=== PATIENT | male | born 1945 | race Caucasian/White ===

== ENCOUNTER 2016-10-21 17:14 | Emergency (ER) | payer OTHER ==
[2016-10-21] MEDS ORDERED: diltiaZEM INJ 5 MG/ML VIAL IVP STA (17:44)
--- NOTE | 2016-10-21 17:45 | ED Physician Documentation ---
PD HPI CHEST PAIN - Stated complaint Stated Complaint: ABNORMAL HR - Chief complaint Chief Complaint: Cardiac - History obtained from History obtained from: Patient - History of Present Illness Timing - onset: Other (70-year-old gentleman visiting from the [facility] , he has a history of recurrent atrial fibrillation and flutter. Last was 2 weeks ago, likely cardioverted at that time. He went back into it at 7 a.m. and has been in it since. He feels fatigued but denies chest pain or trouble breathing. Denies pedal edema.) Review of Systems Ten Systems: 10 systems reviewed and negative Constitutional: reports: Fatigue. denies: Fever, Chills Nose: denies: Rhinorrhea / runny nose, Congestion Throat: denies: Sore throat Cardiac: denies: Chest pain / pressure, Palpitations Respiratory: denies: Dyspnea, Cough PD PAST MEDICAL HISTORY - Past Medical History Past Medical History: Yes Cardiovascular: Atrial fibrillation Other Past Medical History: ablation x 2. pleural effusion - Past Surgical History Past Surgical History: Yes HEENT: Tonsil/Adenoidectomy - Present Medications Home Medications: Ambulatory Orders Medication Instructions Recorded Confirmed Apixaban [Eliquis] 5 mg BID 10/21/16 10/21/16 Cholecalciferol (Vitamin D3) 4,000 unit DAILY 10/21/16 10/21/16 [Vitamin D3] Diltiazem HCl [Diltiazem 24Hr ER] 1 tab BID 10/21/16 10/21/16 Epinephrine [Epipen 2-Lamont] PRN 10/21/16 Eplerenone 25 mg DAILY 10/21/16 10/21/16 Fluticasone [Flonase] 1 spray DAILY 10/21/16 10/21/16 Furosemide 80 mg BID 10/21/16 10/21/16 Losartan [Cozaar] 25 mg DAILY 10/21/16 10/21/16 Magnesium Oxide [Magnesium] 400 mg BID 10/21/16 10/21/16 Melatonin 5 mg QPM 10/21/16 10/21/16 Metolazone 5 mg DAILY PRN 10/21/16 10/21/16 Omeprazole [PriLOSEC] 20 mg BID 10/21/16 10/21/16 Oxymetazoline HCl [Afrin] 1 - 2 spray DAILY PRN 10/21/16 10/21/16 Potassium Chloride 4 tab DAILY 10/21/16 10/21/16 Rosuvastatin Calcium [Crestor] 20 mg QPM 10/21/16 10/21/16 Tadalafil [Cialis] 5 mg DAILY 10/21/16 10/21/16 - Allergies Allergies/Adverse Reactions: Allergies Allergy/AdvReac Type Severity Reaction Status Date / Time bee venom protein (honey bee) Allergy Anaphylaxis Verified 10/21/16 17:29 - Social History Does the pt smoke?: No Smoking Status: Never smoker Does the pt drink ETOH?: Yes Does the pt have substance abuse?: Yes Substance Use and Type: Marijuana PD ED PE NORMAL - Vitals Vital signs reviewed: Yes (tachycardic) - General General: Alert and oriented X 3, No acute distress - HEENT HEENT: PERRL, EOMI - Neck Neck: Supple, no meningeal sign, No bony TTP - Cardiac Cardiac: Other (tachycardic, regular) - Respiratory Respiratory: No respiratory distress, Clear bilaterally - Abdomen Abdomen: Normal bowel sounds, Soft, Non tender - Back Back: No CVA TTP, No spinal TTP - Extremities Extremities: No edema, No calf tenderness / cord - Neuro Neuro: Alert and oriented X 3, Normal speech - Psych Psych: Normal mood, Normal affect Results - Vitals Vitals: Vital Signs - 24 hr 10/21/16 10/21/16 10/21/16 17:20 17:29 17:32 Temperature 36.8 C Heart Rate 148 H Respiratory 18 Rate Blood Pressure 144/81 H Blood Pressure 129/82 H [Right] O2 Saturation 98 10/21/16 10/21/16 10/21/16 17:54 17:58 18:00 Temperature Heart Rate 144 H 117 H 144 H Respiratory 18 28 H 12 Rate Blood Pressure 114/98 H 114/98 H Blood Pressure [Right] O2 Saturation 98 97 10/21/16 10/21/16 10/21/16 18:06 18:10 18:11 Temperature Heart Rate 102 H 115 H 63 Respiratory 16 10 L 8 L Rate Blood Pressure 162/73 H 160/68 H Blood Pressure [Right] O2 Saturation 96 97 88 L 10/21/16 10/21/16 10/21/16 18:13 18:15 18:16 Temperature Heart Rate 68 72 74 Respiratory 12 18 20 Rate Blood Pressure 98/68 98/68 116/69 Blood Pressure [Right] O2 Saturation 97 97 96 10/21/16 18:18 Temperature Heart Rate 76 Respiratory 16 Rate Blood Pressure 133/86 H Blood Pressure [Right] O2 Saturation 96 Oxygen O2 Source Nasal cannula Oxygen Flow Rate 2 - EKG (time done) 1735 Rate: Rate (enter#) (145) Rhythm: Other (Regular, likely aflutter) Ischemia: Non specific changes Computer interpretation: Agree with computer 1826 Rate: Rate (enter#) (75) Rhythm: NSR [place]: Normal Intervals: Normal LA QRS: Normal Ischemia: Non specific changes Computer interpretation: Agree with computer - Labs Labs: Laboratory Tests 10/21/16 10/21/16 17:40 17:40 WBC 11.6 H RBC 5.02 Hgb 15.8 Hct 45.8 MCV 91.1 MCH 31.4 H MCHC 34.5 RDW 12.8 Plt Count 259 MPV 7.3 L Neut # 6.2 Lymph # 3.8 H [place] # 1.1 H Eos # 0.4 Baso # 0.1 Absolute Nucleated RBC 0.00 Nucleated RBCs 0.0 Sodium 134 L Potassium 3.1 L Chloride 93 L Carbon Dioxide 26 Anion Gap 15.0 H BUN 22 H Creatinine 1.1 Estimated GFR (MDRD) 67 L Glucose 129 H Calcium 10.1 Magnesium 2.0 Total Bilirubin 1.0 AST 26 ALT 30 Alkaline Phosphatase 59 Total Protein 8.7 H Albumin 4.8 Globulin 3.9 Albumin/Globulin Ratio 1.2 Lipase 20 L Procedures - Procedural sedation Sedation prep: Informed consent, Time out completed, Last meal (7am), PE performed, AHA 2 - mild disease, IV O2 monitor, ET CO2 monitor, RT present Sedation medications: propofol (100mg IVP) Patient status during sedation: Responds to tactile, Vitals remained stable, Maintained airway. No: Respiratory depression, Hypoxia, Needed resp assistance Sedation recovery: Recovered uneventfully - Cardioversion 1 Time of attempt: 18:11 Indication: Tachyarrhythmia Risks, benefits, alternatives explained to: Pt (signed consent, discussed risk of CVA/anesthesia complication) CS via: AP approach Sync: Biphasic, 100j Performed by: ED MD [facility] - ED course ED course: 70-year-old gentleman with recurrent A. fib presents with A. fib of less than 12 hours duration, and he is anticoagulated and requests electrical cardioversion which has been done before. After informed consent he was administered 100 mg of propofol IV. cardioversion was successful after 100 J on the first try and he recovered without issue. The patient and family were counseled as to the diagnosis and need for followup. I counseled the patient with regard to signs and symptoms that would necessitate an urgent reevaluation in the emergency department. They understand they are welcome to return at any time if worse or if not improving as expected. This document was made in part using voice recognition software. While efforts are made to proofread this document, sound alike and grammatical errors may occur. Departure - Departure Disposition: Home, Self Care Clinical Impression: Atrial fibrillation Qualifiers: Atrial fibrillation type: paroxysmal Qualified Code(s): I48.0 - Paroxysmal atrial fibrillation Condition: Good Record reviewed to determine appropriate education?: Yes Instructions: Atrial Fibrillation Dc Comments: Your potassium was low today (3.1), mention this to your doctor for recheck. You were administered supplementation here. Return if worse. Your blood pressure was elevated today on check in to the emergency department. This does not mean that you have hypertension, it is a common phenomenon to check into the emergency department and have elevated blood pressure. I recommend that you see your primary care physician within the week to have it rechecked when you're feeling better.
[2016-10-21] MEDS ORDERED: diltiaZEM INJ 5 MG/ML VIAL ONE (17:51)
[2016-10-21 17:52] LABS: BASOPHILS # (AUTO) 0.1 10^3/uL (0.0-0.1); BASOPHILS % (AUTO) 0.5 %; EOSINOPHILS # (AUTO) 0.4 10^3/uL (0.0-0.7); EOSINOPHILS % (AUTO) 3.4 %; HCT - HEMATOCRIT 45.8 % (42.0-52.0); HGB - HEMOGLOBIN 15.8 g/dL (14.0-18.0); LYMPHOCYTES # (AUTO) 3.8 10^3/uL (1.5-3.5); LYMPHOCYTES % (AUTO) 33.1 %; MEAN CORPUSCULAR HEMOGLOBIN 31.4 pg (27.0-31.0); MEAN CORPUSCULAR HGB CONC 34.5 g/dL (32.0-36.0); MEAN CORPUSCULAR VOLUME 91.1 fL (80.0-94.0); MEAN PLATELET VOLUME 7.3 fL (7.4-11.4); MONOCYTES # (AUTO) 1.1 10^3/uL (0.0-1.0); MONOCYTES % (AUTO) 9.2 %; NEUTROPHILS # (AUTO) 6.2 10^3/uL (1.5-6.6); NEUTROPHILS % (AUTO) 53.8 %; RED BLOOD COUNT 5.02 10^6/uL (4.70-6.10); RED CELL DISTRIBUTION WIDTH 12.8 % (12.0-15.0); UNCORRECTED WHITE BLOOD COUNT 11.6 x10^3/uL; WHITE BLOOD COUNT 11.6 x10^3/uL (4.8-10.8)
[2016-10-21] MEDS ORDERED: PROPOFOL 200 MG/20 ML VIAL IVP ONE (18:01)
[2016-10-21 18:05] LABS: ALBUMIN/GLOBULIN RATIO 1.2 (1.0-2.2); CALCIUM 10.1 mg/dL (8.5-10.3); CREATININE 1.1 mg/dL (0.6-1.2); POTASSIUM 3.1 mmol/L (3.5-5.0); TOTAL PROTEIN 8.7 g/dL (6.7-8.2)
[2016-10-21] MEDS ORDERED: PROPOFOL 200 MG/20 ML VIAL IVP STA (18:15)
[2016-10-21] MEDS ORDERED: POTASSIUM BICARB 25 MEQ TABLET PO STA (18:15)
[2016-10-21] MEDS ORDERED: POTASSIUM BICARB 25 MEQ TABLET PO ONE (18:34)
[2016-10-21 18:45] VITALS: BP 133/96
== END 2016-10-21 18:47 | disposition home or self-care (01) ==
LOC: ED 17:14
DX: I48.0 Paroxysmal atrial fibrillation (principal); Z79.01 Long term (current) use of anticoagulants; R03.0 Elevated blood-pressure reading, without diagnosis of hypertension
CPT/HCPCS: 36415; 80053; 83690; 83735; 85025; 92960; 93005; 93010; 94770; 96374; 96375; 99152; 99284; A9270